=== PATIENT | female | born 1945 | race African-American/Black ===

== ENCOUNTER → 2018-06-02 | Outpatient (CLI) | payer MEDICARE, OTHER ==
[~2018-06-02] MED LIST: BUDE6HFA IH; DIAZ10TA4 PO; DULO30CA47 PO; HYDR-3504 PO; MONT10TA24 PO; PREM625 PO; PROM6.25 PO; RANI150T5 PO; TIOT18CA IH; TRAM50TA2 PO; TRAZ-111 PO; ZOLP10TA5 PO
== END | disposition home or self-care (01) ==
LOC: RAD 12:55
PROVIDERS: ATTEND Internal Medicine
DX: M25.512 Pain in left shoulder (principal)
CPT/HCPCS: 73030